=== PATIENT | female | born 1995 | race Caucasian/White ===

== ENCOUNTER 2017-05-22 19:01 | Emergency (ER) | payer MEDICAID ==
[~2017-05-22] VITALS: Ht 175.3 cm; Wt 99.8 kg
--- NOTE | 2017-05-22 20:04 | Emergency Room Report ---
History of Present Illness Time Seen by 1932 Presenting Problem in Triage Pt arrived:Walked Presenting Problem:RED RAISED AREA TO CENTER OF CHEST. REPORT AREA X 3 WEEKS. 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 N Clinical Suspician of Infection? N Mental Status: 1 - Regular (Normal Baseline) Sepsis Risk:Low Sepsis Risk Have you (or family members/close friends) recently traveled outside the [place]? N If Yes, where/when: Have you had exposure to infectious disease within the past month? N TB? Other? Specify: Source patient, RN notes reviewed, family, old records Exam Limitations no limitations Comment tender abscess rt ant chest not on breast for the last few weeks - worse today Cardiac Chest Pain Chest pain indicative of cardiac No Timing/Duration this evening Severity moderate ALLERGIES Coded Allergies: Penicillins (Intermediate, I-RASH 02/13/17) loratadine (From CLARITIN) (Intermediate, I-RASH 02/13/17) ondansetron (From ZOFRAN ( HYDROCHLORIDE)) (Intermediate, I-RASH 02/13/17) Home Medications Reported Medications BUPRENORPHINE HCL/NALOXONE HCL (Suboxone 8 MG-2 MG Sl Film) 2 FILM SL DAILY #14 FILM History Medical History General CAD? No Angina: No [place]: No Hypertension? No Hyperlipidemia? No CHF? No DVT? No PE? No COPD? No Asthma? Yes Anemia? No GERD? No Gastric ulcers? No GI Bleed? No Hernia? No Thyroid Problems? No Hypothyroidism? No CVA? No Seizures? No Diabetes? No Renal Insuffiency? No End Stage Renal Disease? No UTI? Yes Stones? No BPH? No GB Disease: Yes Nephritic Syndrome? No Asplenia? No Hepatitis? No Sickle Cell Disease? No Arthritis? No Migraines? No Cataracts? No Glaucoma? No MRSA? Yes HIV? No TB? No Anxiety? Yes Depression? Yes Cancer? No More? Yes Additional hx: PTSD Immunization Hx DT/Tetanus 1-4 Years Ago Flu [id number] Flu Season Pneumonia Refuses Surgical Hx Previous Surgery?Y GALL BLADDER D & C X 2 TUBES IN EARS BL CYCLE REPAIRER Hx LMP N/A Family History Family Hx Diabetes Yes CAD No Hypertension Yes Hyperlipidemia Yes Cancer Yes TB No Social History Smoking Hx Smoker: Never Smoker Tobacco: No Type Cigarettes Alcohol Alcohol: No Drugs none Review of Systems All Other Systems Reviewed and Negative Constitutional denies fever Eyes denies drainage ENT denies: ear discharge, epistaxis, throat pain. Respiratory denies cough, denies shortness of breath, denies wheezing Cardiovascular denies chest pain, denies palpitations, denies syncope Gastrointestinal denies abdominal pain, denies diarrhea, denies vomiting Genitourinary denies: dysuria, frequency, hesitancy, hematuria. Musculoskeletal denies back pain, denies joint pain, denies joint swelling, denies neck pain Skin denies rash Psychiatric/Neurological denies headache, denies seizure Physical Exam Vital Signs Vital Signs Date Time Temp Pulse Resp B/P Pulse O2 O2 Flow FiO2 Ox Delivery Rate 05/22 1950 98.5 95 18 129/87 99 - WBC >12,000 or <4,000 or 10% bands? 2 or more SIRS Criteria Met? B/P:129/87 MAP:101 Creatinine >2.0? UA output<0.5ml/kg/hr for 2 hrs? Platelet count >100,000? Lactate >2.0mmol/1? INR >1.2 or PTT > than 60 sec? Evidence of Organ Dysfunction? Provider documented clinical suspician of infection? N Sepsis Criteria Count: 1 Sepsis Risk: Low Sepsis Risk General Appearance no apparent distress Eye Exam - bilateral eye PERRL, bilateral eye EOMI Ear, Nose, Throat normal ENT inspection Neck non-tender Respiratory Status No: respiratory distress. Cardiovascular regular rate/rhythm Peripheral Pulses Pulses normal Yes Extremities normal inspection Strength 4 Upper Ext (L), 4 Upper Ext (R), 4 Lower Ext (L), 4 Lower Ext (R) Neurologic alert, cardiovascular invasive specialist II-XII nml as tested, no motor/sensory deficits Reflexes Reflexes normal No Mental status normal mood/affect Skin 2x2 cm abscess ant chest Medical Decision Making LABS/Meds/Orders Pt receiving controlled substance in ED? No Results/Orders Current Medication Orders Sig/Glenn Start time Last Medication Dose Route Stop Time Status Admin Lidocaine HCl 20 ML ONCE ONE 05/22 2000 DC SC 05/22 2001 Lidocaine HCl 0 .STK-MED ONE 05/22 1948 DC .ROUTE Orders Procedure Date/time Status CULTURE, WOUND 05/22 1956 Active Procedures Incision and Drainage Incision and Drainage Risks/benefits discussed with pt/guardian? Yes Problem type Abcess Location ant chest Size cm 2.0 Anesthesia Lidocaine 1% Blade Size 15 I & D Procedure Simple, betadine prep, sterile drapes applied, Scalpel incision cm-, Pus large amount, Cultured, Mult. loculations broken , Sterile Dressing Applied. no : Complex, Needle aspiration, Pus small amount, Dissection, Irrigation ml-, gauze wick placed, Packed. Departure Departure Time of Disposition 2000 Disposition DC Home or Self Care(routine) Clinical Impression Primary Impression: Abscess of skin Qualifiers: Site of cutaneous abscess: trunk Site of cutaneous abscess of trunk : chest wall Qualified Code: L02.213 - Cutaneous abscess of chest wall Condition STABLE Patient Instructions DI for Methicillin-Resistant Staph Infection (MRSA) Additional Instructions use meds and see pcp for follow up - warm compresses Discharge Counseling Counseled pt/family regarding diagnosis, medications/RX, follow up needs Prescriptions Current Visit Scripts SULFAMETHOXAZOLE/TRIMETHOPRIM (Sulfamethoxazole-Tmp Ds Tablet) 1 TAB PO BID #20 TAB Minocycline Hcl (Minocycline 100MG. Capsule) 100 MG PO BID #20 CAP ED Critical Care Critical Care No at 2004
--- NOTE | 2017-05-22 20:04 | Emergency Room Report ---
History of Present Illness Time Seen by 1932 Presenting Problem in Triage Pt arrived:Walked Presenting Problem:RED RAISED AREA TO CENTER OF CHEST. REPORT AREA X 3 WEEKS. 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 N Clinical Suspician of Infection? N Mental Status: 1 - Regular (Normal Baseline) Sepsis Risk:Low Sepsis Risk Have you (or family members/close friends) recently traveled outside the [place]? N If Yes, where/when: Have you had exposure to infectious disease within the past month? N TB? Other? Specify: Source patient, RN notes reviewed, family, old records Exam Limitations no limitations Comment tender abscess rt ant chest not on breast for the last few weeks - worse today Cardiac Chest Pain Chest pain indicative of cardiac No Timing/Duration this evening Severity moderate ALLERGIES Coded Allergies: Penicillins (Intermediate, I-RASH 02/13/17) loratadine (From CLARITIN) (Intermediate, I-RASH 02/13/17) ondansetron (From ZOFRAN ( HYDROCHLORIDE)) (Intermediate, I-RASH 02/13/17) Home Medications Reported Medications BUPRENORPHINE HCL/NALOXONE HCL (Suboxone 8 MG-2 MG Sl Film) 2 FILM SL DAILY #14 FILM History Medical History General CAD? No Angina: No [place]: No Hypertension? No Hyperlipidemia? No CHF? No DVT? No PE? No COPD? No Asthma? Yes Anemia? No GERD? No Gastric ulcers? No GI Bleed? No Hernia? No Thyroid Problems? No Hypothyroidism? No CVA? No Seizures? No Diabetes? No Renal Insuffiency? No End Stage Renal Disease? No UTI? Yes Stones? No BPH? No GB Disease: Yes Nephritic Syndrome? No Asplenia? No Hepatitis? No Sickle Cell Disease? No Arthritis? No Migraines? No Cataracts? No Glaucoma? No MRSA? Yes HIV? No TB? No Anxiety? Yes Depression? Yes Cancer? No More? 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 Respiratory denies cough, denies shortness of breath, denies wheezing Cardiovascular denies chest pain, denies palpitations, denies syncope Gastrointestinal denies abdominal pain, denies diarrhea, denies vomiting Genitourinary denies: dysuria, frequency, hesitancy, hematuria. Musculoskeletal denies back pain, denies joint pain, denies joint swelling, denies neck pain Skin denies rash Psychiatric/Neurological denies headache, denies seizure Physical Exam Vital Signs Vital Signs Date Time Temp Pulse Resp B/P Pulse O2 O2 Flow FiO2 Ox Delivery Rate 05/22 1950 98.5 95 18 129/87 99 - WBC >12,000 or <4,000 or 10% bands? 2 or more SIRS Criteria Met? B/P:129/87 MAP:101 Creatinine >2.0? UA output<0.5ml/kg/hr for 2 hrs? Platelet count >100,000? Lactate >2.0mmol/1? INR >1.2 or PTT > than 60 sec? Evidence of Organ Dysfunction? Provider documented clinical suspician of infection? N Sepsis Criteria Count: 1 Sepsis Risk: Low Sepsis Risk General Appearance no apparent distress Eye Exam - bilateral eye PERRL, bilateral eye EOMI Ear, Nose, Throat normal ENT inspection Neck non-tender Respiratory Status No: respiratory distress. 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 No Results/Orders Current Medication Orders Sig/Glenn Start time Last Medication Dose Route Stop Time Status Admin Lidocaine HCl 20 ML ONCE ONE 05/22 2000 DC SC 05/22 2001 Lidocaine HCl 0 .STK-MED ONE 05/22 1948 DC .ROUTE Orders Procedure Date/time Status CULTURE, WOUND 05/22 1956 Active Procedures Incision and Drainage Incision and Drainage Risks/benefits discussed with pt/guardian? Yes Problem type Abcess Location ant chest Size cm 2.0 Anesthesia Lidocaine 1% Blade Size 15 I & D Procedure Simple, betadine prep, sterile drapes applied, Scalpel incision cm-, Pus large amount, Cultured, Mult. loculations broken , Sterile Dressing Applied. no : Complex, Needle aspiration, Pus small amount, Dissection, Irrigation ml-, gauze wick placed, Packed. Departure Departure Time of Disposition 2000 Disposition DC Home or Self Care(routine) Clinical Impression Primary Impression: Abscess of skin Qualifiers: Site of cutaneous abscess: trunk Site of cutaneous abscess of trunk : chest wall Qualified Code: L02.213 - Cutaneous abscess of chest wall Condition STABLE Patient Instructions DI for Methicillin-Resistant Staph Infection (MRSA) Additional Instructions use meds and see pcp for follow up - warm compresses Discharge Counseling Counseled pt/family regarding diagnosis, medications/RX, follow up needs Prescriptions Current Visit Scripts SULFAMETHOXAZOLE/TRIMETHOPRIM (Sulfamethoxazole-Tmp Ds Tablet) 1 TAB PO BID #20 TAB Minocycline Hcl (Minocycline 100MG. Capsule) 100 MG PO BID #20 CAP ED Critical Care Critical Care No at 2004
[2017-05-22 20:25] VITALS: BP 129/87
== END 2017-05-22 20:25 | disposition home or self-care (01) ==
LOC: ER 19:01
PROC: 0H95XZZ Drainage of Chest Skin, External Approach (ICD-10-PCS; principal; 2017-05-22)
DX: L02.213 Cutaneous abscess of chest wall (principal); F41.9 Anxiety disorder, unspecified; F32.9 Major depressive disorder, single episode, unspecified; Z79.899 Other long term (current) drug therapy